=== PATIENT | female | born 1935 | race Caucasian/White ===

== ENCOUNTER 2017-05-24 16:24 | Emergency (ER) | payer MEDICARE ==
[~2017-05-24] VITALS: Ht 157.4 cm; Wt 68.0 kg
[2017-05-24] VITALS (7 sets, daily range): BP systolic 122–208; BP diastolic 56–92
[2017-05-24] MEDS ORDERED: TOPROL XL200 MG PO (16:39)
[2017-05-24] MEDS ORDERED: NEXIUM40 MG PO (16:39)
[2017-05-24] MEDS ORDERED: TRILIPIX45 M1 PO (16:39)
[2017-05-24] MEDS ORDERED: ZOLOFT25 MG PO (16:39)
[2017-05-24] MEDS ORDERED: NORVASC10 MG PO (16:39)
[2017-05-24] MEDS ORDERED: BREO ELLIPTA 11 EACH INH (16:40)
[2017-05-24] MEDS ORDERED: PROAIR HFA8.5 GM INH (16:40)
[2017-05-24] MEDS ORDERED: POTASSIUM CHLO20 ME3 PO (16:40)
[2017-05-24 16:51] LABS: BASO % 0.5 % (0.0-1.0); EOS # 0.3 10*3/uL (0.0-0.4); EOS % 3.6 % (1.0-4.0); HEMATOCRIT 41.9 % (37.0-47.0); LYMPH # 2.3 10*3/uL (1.3-4.4); LYMPH % 28.1 % (27.0-41.0); MEAN CORPUSCULAR HGB 28.4 pg (27.0-31.0); MEAN CORPUSCULAR HGB CONC 33.4 g/dl (33.0-37.0); MEAN PLATELET VOLUME 10.3 fl (9.6-12.3); MONO # 0.7 10*3/uL (0.1-1.0); MONO % 8.5 % (3.0-9.0); NEUT # 4.9 10*3/uL (2.3-7.9); NEUT % 58.9 % (47.0-73.0); PLATELET COUNT AUTOMATED 280 10*3/uL (130-400); RED BLOOD COUNT 4.93 10*6/uL (4.10-5.10); RED CELL DISTRI WIDTH 13.6 % (0-14.5); WHITE BLOOD COUNT 8.3 10*3/uL (4.8-10.8)
[2017-05-24 17:02] LABS: PROTHROMBIN TIME 10.7 SECONDS (9.0-12.4)
[2017-05-24 17:04] LABS: ALBUMIN 3.9 gm/dl (3.1-4.5); BILIRUBIN, TOTAL 0.3 mg/dl (0.2-1.0); MAGNESIUM 1.7 mg/dL (1.5-2.1); POTASSIUM 3.4 mmol/L (3.5-5.1); TOTAL PROTEIN 7.5 gm/dL (6.4-8.2)
[2017-05-24 17:07] LABS: TROPONIN I 5.38 ng/ml (<0.045)
[2017-05-24 17:59] LABS: CKMB 14.6 ng/ml (0.5-3.6)
== END 2017-05-24 23:07 | disposition short-term general hospital (02) ==
LOC: ED 16:24 → EDHOLD 17:39 → EDBD 17:39 → ED 23:07
PROVIDERS: Emergency Medicine; Nurse Practitioner Family
DX: I21.4 Non-ST elevation (NSTEMI) myocardial infarction (principal); E78.00 Pure hypercholesterolemia, unspecified; I10 Essential (primary) hypertension; Z91.041 Radiographic dye allergy status; Z79.899 Other long term (current) drug therapy

== ENCOUNTER 2017-06-03 13:09 | Emergency (ER) | payer MEDICARE ==
[~2017-06-03] VITALS: Ht 154.9 cm; Wt 71.7 kg
[~2017-06-03 13:09] MED LIST: BREO ELLIPTA 11 EACH INH; NEXIUM40 MG PO; NORVASC10 MG PO; POTASSIUM CHLO20 ME3 PO; PROAIR HFA8.5 GM INH; TOPROL XL200 MG PO; TRILIPIX45 M1 PO; ZOLOFT25 MG PO
[2017-06-03 13:54] LABS: BASO % 0.4 % (0.0-1.0); EOS # 0.3 10*3/uL (0.0-0.4); EOS % 3.7 % (1.0-4.0); HEMATOCRIT 33.4 % (37.0-47.0); HEMOGLOBIN 10.6 g/dl (12.0-16.0); IG # 0.2 10*3/uL (0.0-0.1); LYMPH # 1.7 10*3/uL (1.3-4.4); LYMPH % 18.4 % (27.0-41.0); MEAN CELL VOLUME 88.4 fl (81.0-99.0); MEAN CORPUSCULAR HGB CONC 31.7 g/dl (33.0-37.0); MEAN PLATELET VOLUME 9.8 fl (9.6-12.3); MONO # 0.9 10*3/uL (0.1-1.0); MONO % 10.2 % (3.0-9.0); NEUT # 5.9 10*3/uL (2.3-7.9); PLATELET COUNT AUTOMATED 342 10*3/uL (130-400); RED BLOOD COUNT 3.78 10*6/uL (4.10-5.10); RED CELL DISTRI WIDTH 14.7 % (0-14.5); WHITE BLOOD COUNT 9.1 10*3/uL (4.8-10.8)
[2017-06-03 14:02] LABS: PROTHROMBIN TIME 10.7 SECONDS (9.0-12.4)
[2017-06-03 14:08] LABS: ALBUMIN 3.5 gm/dl (3.1-4.5); ALKALINE PHOSPHATASE 62 U/L (45-117); BILIRUBIN, TOTAL 0.9 mg/dl (0.2-1.0); BUN 29 mg/dl (7-24); CARBON DIOXIDE 24 mmol/L (21-32); CHLORIDE 108 mmol/L (98-107); EST GLOM FILT AFRICAN AMERICAN > 60 ml/min; GLUCOSE 93 mg/dL (65-99); POTASSIUM 4.2 mmol/L (3.5-5.1); SGOT/AST 13 IU/L (3-35); SGPT/ALT 18 U/L (12-78); SODIUM 141 mmol/L (136-145); TOTAL PROTEIN 6.8 gm/dL (6.4-8.2)
== END 2017-06-03 16:17 | disposition home or self-care (01) ==
LOC: ED 13:09
PROVIDERS: Nurse Practitioner Family
DX: S70.11XA Contusion of right thigh, initial encounter (principal); R03.0 Elevated blood-pressure reading, without diagnosis of hypertension; Z88.8 Allergy status to other drugs, medicaments and biological substances; Z91.041 Radiographic dye allergy status; Z79.899 Other long term (current) drug therapy; Z95.5 Presence of coronary angioplasty implant and graft; X58.XXXA Exposure to other specified factors, initial encounter; Y93.89 Activity, other specified; Y92.9 Unspecified place or not applicable; Y99.9 Unspecified external cause status

== ENCOUNTER → 2017-09-15 | Outpatient (CLI) | payer MEDICARE | END | disposition home or self-care (01) | LOC: LAB 10:48 | DX: D64.9 Anemia, unspecified (principal); R53.83 Other fatigue ==

== ENCOUNTER → 2019-12-25 | Outpatient (CLI) | payer MEDICARE | END | disposition home or self-care (01) | LOC: CT 12:17 | DX: R91.8 Other nonspecific abnormal finding of lung field (principal); I25.10 Atherosclerotic heart disease of native coronary artery without angina pectoris; R06.02 Shortness of breath; Z85.3 Personal history of malignant neoplasm of breast; Z87.09 Personal history of other diseases of the respiratory system; Z87.891 Personal history of nicotine dependence ==

== ENCOUNTER → 2020-07-23 | Outpatient (CLI) | payer MEDICARE ==
[~2020-07-23] MED LIST changes: +ASPIRIN ADULT L81 M1 PO; +COZAAR50 M1 PO; +FLONASE ALLERG9.9 ML NAS; +HYDROCHLOROTHIA25 M1 PO; +LOPRESSOR50 M1 PO; +PREDNISOLONE ACE5 M5 OP; +PROBIOTIC1 EAC1 PO; +SINGULAIR10 M1 PO; +TRAMADOL HCL50 MG PO; +ZYRTEC10 M2 PO
--- NOTE | 2020-07-23 09:00 | NUR ---
INFORMED CONSENT OBTAINED FOR A LEXISCAN STRESS TEST WITH DR. GUTIERREZ. RESTING EKG SINUS BHAVNA WITHA HT RT OF 57, AND A BP OF 150/78. POX 98% VIA RA, WITH CLEAR BS. COMPLETED ONE MINUTE OF A LEXISCAN PROTOCOL RECEIVING LEXISCAN 0.4 MG OVER 10 SECONDS. DEVELOPED T WAVE INVERSIONS AVL,AVF, PAC'S. COMPLAINED OF SOB AND LIGHTHEADEDNESS THAT WAS RELIEVED IN RECOVERY. HAD A PEAK HT RT OF 67, WITH A BP OF 144/60. LAST RECOVERY HT RT OF 71, WITH A BP OF 148/58. AWAITING NUCLAR IMAGING IN STABLE CONDITION.
== END | disposition home or self-care (01) ==
LOC: CARD 00:33
PROVIDERS: ATTEND Internal Medicine Interventional Cardiology
DX: I21.4 Non-ST elevation (NSTEMI) myocardial infarction (principal); I10 Essential (primary) hypertension; E78.2 Mixed hyperlipidemia; I25.10 Atherosclerotic heart disease of native coronary artery without angina pectoris